=== PATIENT | male | born 1955 | race Caucasian/White ===

== ENCOUNTER 2017-12-14 17:42 | Emergency (ER) | payer OTHER ==
[~2017-12-14] VITALS: Ht 167.6 cm; Wt 75.3 kg
[2017-12-14 17:51] VITALS: Ht 167.6 cm; Wt 75.3 kg
[2017-12-14 19:36] VITALS: BP 137/86
== END 2017-12-14 19:36 | disposition home or self-care (01) ==
LOC: ED 17:42
DX: G40.909 Epilepsy, unspecified, not intractable, without status epilepticus (principal); F41.9 Anxiety disorder, unspecified; R45.851 Suicidal ideations; F10.10 Alcohol abuse, uncomplicated; I10 Essential (primary) hypertension